=== PATIENT | male | born 1965 | race Hispanic/Latino ===

== ENCOUNTER 2018-02-18 11:53 | Emergency (ER) | payer MEDICARE, BC ==
[~2018-02-18] VITALS: Ht 172.7 cm; Wt 127.0 kg
--- OUTSIDE RECORDS SUMMARY | 2018-02-18 11:56 | XMS REPORT | Clinical Summary ---
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 Disp. Refills Start End Date Status Date ACCU-CHEK TREY PLUS TEST 02/10/20 Active STRP strip test strips 16 buPROPion XL (WELLBUTRIN 5 01/17/20 Active XL) 300 MG 24 hr tablet 16 doxazosin (CARDURA) 8 MG 02/27/20 Active tablet 16 VASCEPA 1 gram capsule TK 1 C PO BID 3 03/07/20 Active 16 lisinopril 02/27/20 Active (PRINIVIL,ZESTRIL) 10 MG 16 tablet pioglitazone (ACTOS) 30 02/09/20 Active MG tablet 16 K-TAB 10 mEq CR tablet 01/08/20 Active 16 CRESTOR 10 mg tablet TK 1 T PO QD 1 02/20/20 Active 16 sertraline (ZOLOFT) 100 01/21/20 Active MG tablet 16 RAPAMUNE 1 mg tablet 03/01/20 Active 16 traZODone (DESYREL) 50 MG 02/06/20 Active tablet 16 atorvastatin (LIPITOR) 40 TK 1 T PO DAILY 2 11/01/20 Active MG tablet 16 NEORAL 25 mg capsule 09/03/20 Active 16 ondansetron ODT Take 1 tablet (4 mg 30 tablet 1 05/27/20 Active (ZOFRAN-ODT) 4 MG total) by mouth every 8 17 disintegrating tablet (eight) hours as needed for nausea or vomiting. albuterol (PROVENTIL) 2.5 Take 3 mL (2.5 mg total) 75 mL 1 06/07/20 06/07/20 Active mg /3 mL (0.083 %) by nebulization every 6 17 18 nebulizer (six) hours as needed for solutionIndications: wheezing. Viral bronchitis albuterol (PROAIR HFA) 90 INHALE 2 PUFFS BY MOUTH 8.5 g 3 06/14/20 Active mcg/actuation EVERY 6 HOURS NEEDED 17 inhalerIndications: Cough FOR SHORTNESS OF BREATH VITAMIN D2 50,000 unit Take 1 capsule (50,000 12 capsule 1 08/27/20 Active capsuleIndications: Units total) by mouth 17 Vitamin D deficiency once a week. ondansetron ODT 0 01/19/20 05/27/20 Discontin (ZOFRAN-ODT) 4 MG 16 17 ued disintegrating tablet VITAMIN D2 50,000 unit Take 1 capsule (50,000 12 capsule 0 04/04/20 05/27/20 Discontin capsule Units total) by mouth 16 17 ued once a week. allopurinol (ZYLOPRIM) 09/25/20 05/27/20 Discontin 100 MG tablet 16 17 ued albuterol (PROAIR Inhale 2 puffs every 6 18 g 1 11/15/20 05/22/20 Discontin HFA,PROVENTIL (six) hours as needed for 16 17 ued HFA,VENTOLIN HFA) 90 shortness of breath. mcg/actuation inhalerIndications: Cough amoxicillin-pot Take 1 tablet by mouth 2 20 tablet 0 05/13/20 clavulanate (AUGMENTIN) (two) times a day for 10 17 17 875-125 mg per days. tabletIndications: Acute non-recurrent maxillary sinusitis, Acute suppurative otitis media of both ears without spontaneous rupture of tympanic membranes, recurrence not specified PROAIR HFA 90 INHALE 2 PUFFS BY MOUTH 8.5 g 0 05/22/20 06/14/20 Discontin mcg/actuation EVERY 6 HOURS NEEDED 17 17 ued inhalerIndications: Cough FOR SHORTNESS OF BREATH VITAMIN D2 50,000 unit Take 1 capsule (50,000 12 capsule 0 05/27/20 05/27/20 Discontin capsuleIndications: Units total) by mouth 17 17 ued Vitamin D deficiency once a week. VITAMIN D2 50,000 unit Take 1 capsule (50,000 12 capsule 1 05/27/20 08/27/20 Discontin capsuleIndications: Units total) by mouth 17 17 ued Vitamin D deficiency once a week. codeine-guaifenesin Take 5 mL by mouth 3 236 mL 0 06/07/20 06/17/20 (GUAIFENESIN AC) 10-100 (three) times a day as 17 17 mg/5 mL needed for cough for up liquidIndications: Viral to 10 days. bronchitis erythromycin 0.5% Administer 1 application 1 g 0 08/27/20 09/03/20 (ILOTYCIN) 5 mg/gram (0.5 into the left eye 2 (two) 17 17 %) ophthalmic times a day for 7 days. ointmentIndications: Acute bacterial conjunctivitis of left eye Hospital, Clinic, or Ordered Dose Route Frequency Start End Date Status Other Facility Date Administered Medication albuterol (PROVENTIL) 2.5 mg nebu Once 06/07/20 Active nebulizer solution 2.5 17 mgIndications: Cough, SOB (shortness of breath), Viral bronchitis Active Problems Problem Noted Date Abscess 01/09/2017 Acute pharyngitis 01/09/2017 Acute upper respiratory infection 01/09/2017 Ankle joint pain 01/09/2017 Nausea 01/09/2017 Multiple-type hyperlipidemia 01/09/2017 Abdominal distension 01/09/2017 Joint pain 01/09/2017 Iron deficiency anemia 01/09/2017 Insomnia 01/09/2017 Hyperlipidemia 01/09/2017 History of kidney transplant 01/09/2017 Headache 01/09/2017 Gouty arthropathy 01/09/2017 Fever 01/09/2017 Elevated blood-pressure reading without diagnosis of hypertension 01/09/2017 Diverticulitis of sigmoid colon 01/09/2017 Diverticulosis of intestine 01/09/2017 Diarrhea 01/09/2017 Benign essential hypertension 01/09/2017 Chest pain 01/09/2017 Conjunctivitis 01/09/2017 Obstructive sleep apnea syndrome in adult 01/09/2017 Cellulitis of orbit 01/09/2017 Pain of lower extremity 01/09/2017 Otitis media 01/09/2017 Psychogenic headache 01/09/2017 Renal disorder 01/09/2017 Right flank pain 01/09/2017 Arthralgia of shoulder 01/09/2017 Stomatitis 01/09/2017 Testicular hypofunction 01/09/2017 Tremor 01/09/2017 Urinary tract infection 01/09/2017 Vitamin D deficiency 01/09/2017 Diabetes mellitus 11/09/2016 Overview: Overview: IDDM PREDNISONE INDUCED Overview: IDDM PREDNISONE INDUCED Gout 11/09/2016 Hypertension 11/09/2016 Congenital cystic kidney disease 11/09/2016 Sleep apnea 11/09/2016 Overview: Overview: uses cpap Overview: uses cpap Diverticulitis of large intestine 03/22/2016 Benign prostatic hyperplasia 02/10/2016 Chronic kidney disease, stage III (moderate) 02/10/2016 Depression 02/10/2016 Left lower quadrant pain 02/10/2016 Encounters Date Type Specialty Care Team Description 12/09/2017 Lab Lab Colleen Dow MD Multiple-type hyperlipidemia; Vitamin D deficiency; IGT (impaired glucose tolerance); Anemia, unspecified type 12/09/2017 Office Visit Internal Medicine Colleen Dow MD Multiple-type hyperlipidemia (Primary Dx); Vitamin D deficiency; Need for influenza vaccination; Anemia, unspecified type; IGT (impaired glucose tolerance); History of diverticulitis 08/27/2017 Office Visit Internal Medicine Colleen Dow MD Diabetes mellitus with insulin therapy (Primary Dx); Benign essential hypertension; Vitamin D deficiency; Chronic kidney disease, stage III (moderate); Acute bacterial conjunctivitis of left eye; Need for influenza vaccination 06/14/2017 Refill Internal Medicine Anh Lee MA Cough 06/07/2017 Office Visit Internal Medicine Colleen Dow MD Cough (Primary Dx); SOB (shortness of breath); Viral bronchitis 06/07/2017 Telephone Family Medicine Kalyn Hawk LVN 05/30/2017 Refill Internal Medicine Colleen Dow MD Acute non -recurrent maxillary sinusitis; Acute suppurative otitis media of both ears without spontaneous rupture of tympanic membranes, recurrence not specified 05/27/2017 Office Visit Internal Medicine Colleen Dow MD Hoarseness (Primary Dx); Multiple-type hyperlipidemia; Vitamin D deficiency; Elevated liver function tests; Gastroesophageal reflux disease with esophagitis 05/22/2017 Refill Family Medicine Lakeshia Dunlap MD Cough 05/13/2017 Lab Lab Colleen Dow MD Multiple-type hyperlipidemia; Other iron deficiency anemia; Vitamin D deficiency; Type 2 diabetes mellitus with chronic kidney disease, without long-term current use of insulin, unspecified CKD stage; Localized edema; Benign non-nodular prostatic hyperplasia without lower urinary tract symptoms; Screening for prostate cancer; Need for hepatitis C screening test 05/13/2017 Office Visit Internal Medicine Colleen Dow MD Acute non-recurrent maxillary sinusitis (Primary Dx); Acute suppurative otitis media of both ears without spontaneous rupture of tympanic membranes, recurrence not specified after 02/17/2017 Immunizations Name Dates Previously Given Next Due INFLUENZA QUAD PF 12/09/2017, 08/27/2017 Influenza, Unspecified 11/25/2016, 02/16/2016 Family History Medical History Relation Name Comments Lupus Daughter Anorexia nervosa Daughter Diabetes Father after transplant Kidney failure Father PCKD Kidney failure Son PCKD Relation Name Status Comments Daughter Daughter Father Son Social History Tobacco Use Types Packs/Day Years Used Date Never Smoker Tobacco Cessation: Counseling Given: No Alcohol Use Drinks/Week oz/Week Comments No 1/year Sex Assigned at Date Recorded Not on file Last Filed Vital Signs Vital Sign Reading Time Taken Blood Pressure 112/73 12/09/2017 10:36 AM [facility] Pulse 85 12/09/2017 10:36 AM [facility] Temperature 36.6 C (97.8 F) 12/09/2017 10:36 AM [facility] Respiratory Rate 18 12/09/2017 10:36 AM [facility] Oxygen Saturation 95% 12/09/2017 10:36 AM [facility] Inhaled Oxygen - - Concentration Weight 126 kg (278 lb) 12/09/2017 10:36 AM [facility] Height 172.7 cm (5' 8") 08/27/2017 10:15 AM CDT Body Mass Index 42.27 12/09/2017 10:36 AM [facility] Plan of Treatment Health Maintenance Due Date Last Done Comments FOOT EXAM 1975 OPHTHALMOLOGY EXAM 1975 COLONOSCOPY 2015 INFLUENZA VACCINE Completed 12/09/2017, 08/27/2017, 11/25/2016, Additional history exists Results * Vitamin D 25 hydroxy level (12/09/2017 11:34 AM) Only the most recent of 2 results within the time period is included. Component Value Ref Range Vitamin D, 25-hydroxy 22.6 (L) 30.0 - 100.0 ng/mL Comment: Vitamin D deficiency has been defined by the [place] [employer] and an Endocrine Society practice guideline as a level of serum 25-OH vitamin D less than 20 ng/mL (1,2). The Endocrine Society went on to further define vitamin D insufficiency as a level between 21 and 29 ng/mL (2). 1. IOM ([place] [employer]). 2010. Dietary reference intakes for calcium and D. [place]: The National Academies Press. 2. Jose Enrique MF, Dimple [place], Araseli JUAREZ, et al. Evaluation, treatment, and prevention of vitamin D deficiency: an Endocrine Society clinical practice guideline. JCEM. 2010; 96(2):1911-30. Specimen Performing Laboratory Blood [facility] Narrative Performed at:[address] [place], [place] [id number] [employer] Hand: Jasiel Garcia MD, Phone:[phone] * Iron level (12/09/2017 11:34 AM) Only the most recent of 2 results within the time period is included. Component Value Ref Range Iron level 75 38 - 169 ug/dL Specimen Performing Laboratory [facility] Narrative Performed at:[address] [place], [place] [id number] [employer] Hand: Jasiel Garcia MD, Phone:[phone] * Hemoglobin A1c (12/09/2017 11:34 AM) Only the most recent of 2 results within the time period is included. Component Value Ref Range Hemoglobin A1C 6.2 (H) 4.8 - 5.6 % Comment: Pre-diabetes: 5.7 - 6.4 Diabetes: >6.4 Glycemic control for adults with diabetes: <7.0 Specimen Performing Laboratory [facility] Narrative Performed at:[address] [place], [place] [id number] [employer] Hand: Jasiel Garcia MD, Phone:[phone] * Ferritin level (12/09/2017 11:34 AM) Only the most recent of 2 results within the time period is included. Component Value Ref Range Ferritin level 416 (H) 30 - 400 ng/mL Specimen Performing Laboratory [facility] Narrative Performed at:[address] [place], [place] [id number] [employer] Hand: Jasiel Garcia MD, Phone:[phone] * Lipid panel (12/09/2017 11:34 AM) Only the most recent of 2 results within the time period is included. Component Value Ref Range Cholesterol 174 100 - 199 mg/dL Triglycerides 246 (H) 0 - 149 mg/dL HDL cholesterol 43 >39 mg/dL VLDL cholesterol nely 49 (H) 5 - 40 mg/dL LDL cholesterol 82 0 - 99 mg/dL calculated Non-HDL cholesterol 131 (H) 0 - 129 mg/dL Specimen Performing Laboratory [facility] Narrative Performed at: - [id number] [employer] Hand: Jasiel Garcia MD, Phone:[phone] * XR Chest 2 Vw (06/07/2017 11:44 AM) Specimen Performing Laboratory [facility] [address] [place] [address] Narrative EXAMINATION:XR CHEST 2 VW CLINICAL HISTORY:R05 Cough, Cough, transplant patient COMPARISON: November 16, 2016 . IMPRESSION: 1.The heart size is at upper limits of normal. 2.No focal areas of consolidation are identified. There is mild peribronchial wall thickening however this is unchanged from November 16, 2016 and may relate to bronchitis or the patient's underlying volume status. 3.A pleural effusion or pneumothorax is not identified. Osseous structures are intact. 4.Overall, there has been no interval change from prior. [id number] Procedure Note Hm Interface, Radiology Results Incoming - 06/07/2017 1:11 PM CDT EXAMINATION: XR CHEST 2 VW CLINICAL HISTORY: R05 Cough, Cough, transplant patient COMPARISON: November 16, 2016 . IMPRESSION: 1. The heart size is at upper limits of normal. 2. No focal areas of consolidation are identified. There is mild peribronchial wall thickening however this is unchanged from November 16, 2016 and may relate to bronchitis or the patient's underlying volume status. 3. A pleural effusion or pneumothorax is not identified. Osseous structures are intact. 4. Overall, there has been no interval change from prior. [id number] * FL Upper GI (06/05/2017 9:45 AM) Specimen Performing Laboratory [facility] [address] [place] [address] Narrative EXAMINATION:FL UPPER GI CLINICAL HISTORY:K21.0 Gastro-esophageal reflux disease with esophagitis, increased GERD COMPARISON:None. TECHNIQUE:UPPER GI SERIES was performed with effervescent granules and barium. FLUOROSCOPIC TIME:2 minutes IMAGES:26 IMPRESSION: 1.Esophagus:Esophagus was distensible. The mucosa and motility were within normal limits. 2.Gastroesophageal junction:There is a small intermittent sliding hiatal hernia (image 9). There was some spontaneous gastroesophageal reflux to the level of the midesophagus. 3.Stomach:Normally distensible and demonstrates normal contours and mucosal pattern. 4.Duodenum:Bulb and sweep are normal. The duodenal-jejunal junction is in the normal expected position. There is a diverticulum from the second stage of the duodenum. Surgical clips over the left upper quadrant. [id number] Procedure Note Interface, Radiology Results Incoming - 06/05/2017 11:29 AM CDT EXAMINATION: FL UPPER GI CLINICAL HISTORY: K21.0 Gastro-esophageal reflux disease with esophagitis, increased GERD COMPARISON: None. TECHNIQUE: UPPER GI SERIES was performed with effervescent granules and barium. FLUOROSCOPIC TIME: 2 minutes IMAGES: 26 IMPRESSION: 1. Esophagus: Esophagus was distensible. The mucosa and motility were within normal limits. 2. Gastroesophageal junction: There is a small intermittent sliding hiatal hernia (image 9). There was some spontaneous gastroesophageal reflux to the level of the midesophagus. 3. Stomach: Normally distensible and demonstrates normal contours and mucosal pattern. 4. Duodenum: Bulb and sweep are normal. The duodenal-jejunal junction is in the normal expected position. There is a diverticulum from the second stage of the duodenum. Surgical clips over the left upper quadrant. [id number] * US Abdomen Complete (06/05/2017 9:25 AM) Specimen Performing Laboratory [address] [address] Narrative EXAM: US ABDOMEN COMPLETE CLINICAL DATA:R79.89 Other specified abnormal findings of blood chemistry, ABNORMAL LIVER FUNCTION TESTS, elevated LE's new onset COMPARISON: NONE. FINDINGS: PANCREAS:The visualized portions of the pancreas are within normal limits. LIVER:The liver demonstrates heterogeneous and slightly hyperechoic echotexture. There is no focal liver lesion identified. Negative for dilation of intra or extrahepatic grade ducts. MPV:Doppler evaluation of the portal vein demonstrates normal hepatopedal flow. measuring 1.3 cm. CBD:6 within normal limits. GALLBLADDER:The gallbladder is without evidence of calculi. The gallbladder wall is not thickened and there is no pericholecystic fluid. Multiple cysts seen within the right kidney with largest measuring 3 cm. No visualized suspicious mass. Status post left nephrectomy. Transplanted kidney located in the right lower quadrant measuring 9.8 x 6.2 x 5.8 cm was cortex measuring 1.44 cm. Mild dilation of right upper pole cavities. SPLEEN:The spleen is homogeneous and not enlarged measuring9.5 cm AORTA:The visualized upper abdominal aorta demonstrates no evidence of ectasia or aneurysm. IVC:The visualized portions of the inferior vena cava are unremarkable. IMPRESSION: 1. The liver demonstrates heterogeneous and slightly hyperechoic echotexture without focal lesion or dilation ofintra or extrahepatic biliary ducts. 2. Negative for cholelithiasis or cholecystitis. 3. Transplanted kidney located in the right lower quadrant. Mild dilation of upper pole cavities likely physiologic. Negative for nephrolithiasis. 4. Cahto right kidney demonstrates multiple cysts with largest measuring 3 cm consistent with known patient history of polycystic kidney disease. 5. Status post left nephrectomy. Unremarkable surgical site. [id number] Procedure Note Hm Interface, Radiology Results Incoming - 06/05/2017 9:56 AM CDT EXAM: US ABDOMEN COMPLETE CLINICAL DATA: R79.89 Other specified abnormal findings of blood chemistry, ABNORMAL LIVER FUNCTION TESTS, elevated LE's new onset COMPARISON: NONE. FINDINGS: PANCREAS: The visualized portions of the pancreas are within normal limits. LIVER: The liver demonstrates heterogeneous and slightly hyperechoic echotexture. There is no focal liver lesion identified. Negative for dilation of intra or extrahepatic grade ducts. MPV: Doppler evaluation of the portal vein demonstrates normal hepatopedal flow. measuring 1.3 cm. CBD: 6 within normal limits. GALLBLADDER: The gallbladder is without evidence of calculi. The gallbladder wall is not thickened and there is no pericholecystic fluid. Multiple cysts seen within the right kidney with largest measuring 3 cm. No visualized suspicious mass. Status post left nephrectomy. Transplanted kidney located in the right lower quadrant measuring 9.8 x 6.2 x 5.8 cm was cortex measuring 1.44 cm. Mild dilation of right upper pole cavities. SPLEEN: The spleen is homogeneous and not enlarged measuring 9.5 cm AORTA: The visualized upper abdominal aorta demonstrates no evidence of ectasia or aneurysm. IVC: The visualized portions of the inferior vena cava are unremarkable. IMPRESSION: 1. The liver demonstrates heterogeneous and slightly hyperechoic echotexture without focal lesion or dilation of intra or extrahepatic biliary ducts. 2. Negative for cholelithiasis or cholecystitis. 3. Transplanted kidney located in the right lower quadrant. Mild dilation of upper pole cavities likely physiologic. Negative for nephrolithiasis. 4. Cahto right kidney demonstrates multiple cysts with largest measuring 3 cm consistent with known patient history of polycystic kidney disease. 5. Status post left nephrectomy. Unremarkable surgical site. [id number] * Hepatitis acute panel (05/13/2017 9:53 AM) Component Value Ref Range Hepatitis A IgM Negative Negative Hepatitis B surface Ag Negative Negative Hepatitis B core IgM Negative Negative Hepatitis C Ab <0.1 0.0 - 0.9 s/co ratio Comment: Negative: < 0.8 Indeterminate: 0.8 - 0.9 Positive: > 0.9 The CDC recommends that a positive HCV antibody result be followed up with a HCV Nucleic Acid Amplification test (998994). Specimen Performing Laboratory [facility] Narrative Performed at: - [id number] [employer] Hand: Jasiel Garcia MD, Phone:[phone] * CBC with platelet and differential (05/13/2017 9:53 AM) Component Value Ref Range WBC 5.4 3.4 - 10.8 x10E3/uL RBC 3.90 (L) 4.14 - 5.80 x10E6/uL HGB 10.8 (L) 12.6 - 17.7 g/dL HCT 33.5 (L) 37.5 - 51.0 % MCV 86 79 - 97 fL MCH 27.7 26.6 - 33.0 pg MCHC 32.2 31.5 - 35.7 g/dL RDW 16.4 (H) 12.3 - 15.4 % Platelet count 168 150 - 379 x10E3/uL Neutrophils 61 % Lymphocytes 26 % Monocytes 6 % Eosinophils 7 % Basophils 0 % Neutrophils, absolute 3.2 1.4 - 7.0 x10E3/uL Lymphocytes, absolute 1.4 0.7 - 3.1 x10E3/uL Monocytes, absolute 0.3 0.1 - 0.9 x10E3/uL Eosinophils, absolute 0.4 0.0 - 0.4 x10E3/uL Basophils, absolute 0.0 0.0 - 0.2 x10E3/uL Immature granulocytes 0 % Immature grans (abs) 0.0 0.0 - 0.1 x10E3/uL Specimen Performing Laboratory [facility] Narrative Performed at:[address] [place], [place] [id number] [employer] Hand: Jasiel Garcia MD, Phone:[phone] * T3, free (05/13/2017 9:53 AM) Component Value Ref Range T3, free 3.3 2.0 - 4.4 pg/mL Specimen Performing Laboratory [facility] Narrative Performed at:[address] [place], [place] [id number] [employer] Hand: Jasiel Garcia MD, Phone:[phone] * Thyroid stimulating hormone (05/13/2017 9:53 AM) Component Value Ref Range TSH 4.420 0.450 - 4.500 uIU/mL Specimen Performing Laboratory [facility] Narrative Performed at:[address] [place], [place] [id number] [employer] Hand: Jasiel Garcia MD, Phone:[phone] * Prostate specific antigen (05/13/2017 9:53 AM) Component Value Ref Range PSA 0.7 0.0 - 4.0 ng/mL Comment: Kieran ECLIA methodology. According to the [place] [employer], Serum PSA should decrease and remain at undetectable levels after radical prostatectomy. The AUA defines biochemical recurrence as an initial PSA value 0.2 ng/mL or greater followed by a subsequent confirmatory PSA value 0.2 ng/mL or greater. Values obtained with different assay methods or kits cannot be used interchangeably. Results cannot be interpreted as absolute evidence of the presence or absence of malignant disease. Specimen Performing Laboratory [facility] Narrative Performed at:[address] [place], [place] [id number] [employer] Hand: Jasiel Garcia MD, Phone:[phone] * Vitamin B12 level (05/13/2017 9:53 AM) Component Value Ref Range Vitamin B12 1,471 (H) 211 - 946 pg/mL Specimen Performing Laboratory [facility] Narrative Performed at:[address] [place], [place] [id number] [employer] Hand: Jasiel Garcia MD, Phone:[phone] * Comprehensive metabolic panel (05/13/2017 9:53 AM) Component Value Ref Range Glucose 104 (H) 65 - 99 mg/dL BUN, whole blood 43 (H) 6 - 24 mg/dL Creatinine 1.79 (H) 0.76 - 1.27 mg/dL EGFR Non-Afr. [place] 43 (L) >59 mL/min/1.73 EGFR 50 (L) >59 mL/min/1.73 BUN/creatinine ratio 24 (H) 9 - 20 Sodium 143 134 - 144 mmol/L Potassium 4.2 3.5 - 5.2 mmol/L Chloride 106 96 - 106 mmol/L CO2 21 18 - 29 mmol/L Calcium 8.9 8.7 - 10.2 mg/dL Protein 6.6 6.0 - 8.5 g/dL Albumin, S 4.0 3.5 - 5.5 g/dL Globulin, total 2.6 1.5 - 4.5 g/dL Albumin/globulin ratio 1.5 1.2 - 2.2 Total bilirubin 0.5 0.0 - 1.2 mg/dL Alkaline phosphatase 138 (H) 39 - 117 IU/L AST 45 (H) 0 - 40 IU/L ALT 46 (H) 0 - 44 IU/L Specimen Performing Laboratory [facility] Narrative Performed at: [facility] [id number] [employer] Hand: Jasiel Garcia MD, Phone:[phone] after 02/17/2017 Insurance Payer Benefit Subscriber ID Type Phone Address Plan / Group MEDICARE MEDICARE xxxxxxxxxx Medicare [place], [place] PART A AND B BCBS BCBS xxxxxxxxx PPO CHOICE PPO/AMMON FERRIS PPO
--- OUTSIDE RECORDS SUMMARY | 2018-02-18 11:56 | XMS REPORT ---
[facility] Address Unknown Phone Unavailable Care Team Providers Care Attending Radiologist Name Role Phone GREG MONTELONGO Unavailable Unavailable Problems This patient has no known problems. Allergies, Adverse Reactions, Alerts This patient has no known allergies or adverse reactions. Medications This patient has no known medications. Results Test Description Test Time Test Comments Text Results Atomic Results Result Comments BLOOD CULTURE 2017-12-01 23:00:00 CULTURE (BEAKER) (test lrma=2205) No growth in 5 days BLOOD [id number] 23:00:00* Test Item Value Reference Range Comments CULTURE (BEAKER) (test cdaq=8483) No growth in 5 days POCT-GLUCOSE [id number] 07:52:00* Test Item Value Reference Range Comments POC-GLUCOSE METER (BEAKER) (test qrqk=9223) 93 mg/dL 70-[address] [facility] [address] [facility] [address] BASIC METABOLIC [id number] 06:18:00* Test Item Value Reference Range Comments SODIUM (BEAKER) (test gdkc=347) 141 meq/L 136-145 POTASSIUM (BEAKER) (test dpzg=275) 4.6 meq/L 3.5-5.1 CHLORIDE (BEAKER) (test nvml=455) 114 meq/L 98-107 CO2 (BEAKER) (test iycs=104) 20 meq/L 22-29 BLOOD UREA NITROGEN (BEAKER) (test zcqz=548) 25 mg/dL 7-21 CREATININE (BEAKER) (test ouho=080) 1.70 mg/dL 0.57-1.25 GLUCOSE RANDOM (BEAKER) (test hpzc=343) 96 mg/dL 70-105 CALCIUM (BEAKER) (test vehg=565) 8.7 mg/dL 8.4-10.2 EGFR (BEAKER) (test wcml=7512) mL/min/1.73 sq m INSUFFICIENT CLINICAL DATA TO CALCULATE ESTIMATED GFR. [id number] 06:14:00* Test Item Value Reference Range Comments PHOSPHORUS (BEAKER) (test yyfz=258) 2.6 mg/dL 2.3-4.7 [id number] 06:14:00* Test Item Value Reference Range Comments MAGNESIUM (BEAKER) (test ruad=320) 1.7 mg/dL 1.6-2.6 CBC W/PLT COUNT & AUTO [id number] 05:44:00* Test Item Value Reference Range Comments WHITE BLOOD CELL COUNT (BEAKER) (test yjva=512) 3.4 K/ L 3.5-10.5 RED BLOOD CELL COUNT (BEAKER) (test qjyl=168) 3.34 M/ L 4.63-6.08 HEMOGLOBIN (BEAKER) (test sgqw=614) 9.2 GM/DL 13.7-17.5 HEMATOCRIT (BEAKER) (test akeu=403) 30.4 % 40.1-51.0 MEAN CORPUSCULAR VOLUME (BEAKER) (test kttf=264) 91.0 fL 79.0-92.2 MEAN CORPUSCULAR HEMOGLOBIN (BEAKER) (test funy=142) 27.5 pg 25.7-32.2 MEAN CORPUSCULAR HEMOGLOBIN CONC (BEAKER) (test weth=034) 30.3 GM/DL 32.3- 36.5 RED CELL DISTRIBUTION WIDTH (BEAKER) (test hjwg=194) 15.3 % 11.6-14.4 PLATELET COUNT (BEAKER) (test swyw=873) 151 K/CU MM 150-450 MEAN PLATELET VOLUME (BEAKER) (test edts=041) 10.5 fL 9.4-12.4 NUCLEATED RED BLOOD CELLS (BEAKER) (test eysr=441) 0 /100 WBC 0-0 NEUTROPHILS RELATIVE PERCENT (BEAKER) (test gvmb=035) 39 % LYMPHOCYTES RELATIVE PERCENT (BEAKER) (test vtik=107) 45 % MONOCYTES RELATIVE PERCENT (BEAKER) (test idqr=828) 8 % EOSINOPHILS RELATIVE PERCENT (BEAKER) (test idfy=502) 7 % BASOPHILS RELATIVE PERCENT (BEAKER) (test drbv=646) 1 % NEUTROPHILS ABSOLUTE COUNT (BEAKER) (test smmx=459) 1.33 K/ L 1.78-5.38 LYMPHOCYTES ABSOLUTE COUNT (BEAKER) (test auhx=514) 1.53 K/ L 1.32-3.57 MONOCYTES ABSOLUTE COUNT (BEAKER) (test axcd=644) 0.27 K/ L 0.30-0.82 EOSINOPHILS ABSOLUTE COUNT (BEAKER) (test cvwo=887) 0.22 K/ L 0.04-0.54 BASOPHILS ABSOLUTE COUNT (BEAKER) (test qspb=065) 0.02 K/ L 0.01-0.08 IMMATURE GRANULOCYTES-RELATIVE PERCENT (BEAKER) (test hcmm=0771) 1 % 0-1 POCT-GLUCOSE [id number] 23:04:00* Test Item Value Reference Range Comments POC-GLUCOSE METER (BEAKER) (test hbqt=0384) 117 mg/dL 70-110 TESTED AT [address] [address] POCT-GLUCOSE [id number] 17:54:00* Test Item Value Reference Range Comments POC-GLUCOSE METER (BEAKER) (test jeqy=2961) 175 mg/dL 70-110 TESTED AT [address] [address] POCT-GLUCOSE [id number] 12:09:00* Test Item Value Reference Range Comments POC-GLUCOSE METER (BEAKER) (test nsmx=4565) 185 mg/dL 70-110 TESTED AT [address] [address] POCT-GLUCOSE [id number] 08:17:00* Test Item Value Reference Range Comments POC-GLUCOSE METER (BEAKER) (test ecgw=6901) 109 mg/dL 70-110 TESTED AT [address] [address] BASIC METABOLIC [id number] 06:54:00* Test Item Value Reference Range Comments SODIUM (BEAKER) (test vwru=385) 140 meq/L 136-145 POTASSIUM (BEAKER) (test abum=631) 4.6 meq/L 3.5-5.1 CHLORIDE (BEAKER) (test hfhb=483) 112 meq/L 98-107 CO2 (BEAKER) (test zvlv=792) 20 meq/L 22-29 BLOOD UREA NITROGEN (BEAKER) (test vvup=943) 27 mg/dL 7-21 CREATININE (BEAKER) (test stwh=710) 1.72 mg/dL 0.57-1.25 GLUCOSE RANDOM (BEAKER) (test abqi=489) 117 mg/dL 70-105 CALCIUM (BEAKER) (test mqtl=207) 8.2 mg/dL 8.4-10.2 EGFR (BEAKER) (test tbqh=3029) mL/min/1.73 sq m INSUFFICIENT CLINICAL DATA TO CALCULATE ESTIMATED GFR. [id number] 06:43:00* Test Item Value Reference Range Comments PHOSPHORUS (BEAKER) (test bpxr=562) 2.4 mg/dL 2.3-4.7 [id number] 06:43:00* Test Item Value Reference Range Comments MAGNESIUM (BEAKER) (test pumi=901) 1.4 mg/dL 1.6-2.6 CBC W/PLT COUNT & AUTO [id number] 06:12:00* Test Item Value Reference Range Comments WHITE BLOOD CELL COUNT (BEAKER) (test kofh=284) 3.0 K/ L 3.5-10.5 RED BLOOD CELL COUNT (BEAKER) (test from=386) 3.21 M/ L 4.63-6.08 HEMOGLOBIN (BEAKER) (test hiis=939) 8.9 GM/DL 13.7-17.5 HEMATOCRIT (BEAKER) (test hkef=511) 29.1 % 40.1-51.0 MEAN CORPUSCULAR VOLUME (BEAKER) (test stkj=684) 90.7 fL 79.0-92.2 MEAN CORPUSCULAR HEMOGLOBIN (BEAKER) (test pcer=862) 27.7 pg 25.7-32.2 MEAN CORPUSCULAR HEMOGLOBIN CONC (BEAKER) (test timq=372) 30.6 GM/DL 32.3- 36.5 RED CELL DISTRIBUTION WIDTH (BEAKER) (test jhiq=617) 15.1 % 11.6-14.4 PLATELET COUNT (BEAKER) (test rlcr=743) 143 K/CU MM 150-450 MEAN PLATELET VOLUME (BEAKER) (test wfhr=149) 10.6 fL 9.4-12.4 NUCLEATED RED BLOOD CELLS (BEAKER) (test dspy=006) 0 /100 WBC 0-0 NEUTROPHILS RELATIVE PERCENT (BEAKER) (test srul=328) 40 % LYMPHOCYTES RELATIVE PERCENT (BEAKER) (test gsed=400) 43 % MONOCYTES RELATIVE PERCENT (BEAKER) (test rrcq=689) 9 % EOSINOPHILS RELATIVE PERCENT (BEAKER) (test gpom=926) 8 % BASOPHILS RELATIVE PERCENT (BEAKER) (test vuha=538) 1 % NEUTROPHILS ABSOLUTE COUNT (BEAKER) (test zoos=138) 1.18 K/ L 1.78-5.38 LYMPHOCYTES ABSOLUTE COUNT (BEAKER) (test lson=410) 1.27 K/ L 1.32-3.57 MONOCYTES ABSOLUTE COUNT (BEAKER) (test tkun=766) 0.26 K/ L 0.30-0.82 EOSINOPHILS ABSOLUTE COUNT (BEAKER) (test wpvx=819) 0.24 K/ L 0.04-0.54 BASOPHILS ABSOLUTE COUNT (BEAKER) (test aicq=310) 0.03 K/ L 0.01-0.08 IMMATURE GRANULOCYTES-RELATIVE PERCENT (BEAKER) (test emma=2344) 0 % 0-1 POCT-GLUCOSE [id number] 21:03:00* Test Item Value Reference Range Comments POC-GLUCOSE METER (BEAKER) (test rvbx=1110) 191 mg/dL 70-110 TESTED AT [address] [address] POCT-GLUCOSE [id number] 17:11:00* Test Item Value Reference Range Comments POC-GLUCOSE METER (BEAKER) (test owfw=9214) 94 mg/dL 70-110 TESTED AT [address] [address] CYCLOSPORINE [id number] 13:10:00* Test Item Value Reference Range Comments CYCLOSPORINE BLOOD (BEAKER) (test jrwy=990) 64 ng/mL <400 POCT-GLUCOSE [id number] 12:06:00* Test Item Value Reference Range Comments POC-GLUCOSE METER (BEAKER) (test lfvl=5180) 93 mg/dL 70-110 TESTED AT [address] [address] SIROLIMUS [id number] 12:01:00* Test Item Value Reference Range Comments SIROLIMUS LEVEL BLOOD (BEAKER) (test ihvn=562) 9.0 ng/mL 5.0-15.0 CBC W/PLT COUNT & AUTO [id number] 07:07:00* Test Item Value Reference Range Comments WHITE BLOOD CELL COUNT (BEAKER) (test qewa=256) 3.7 K/ L 3.5-10.5 RED BLOOD CELL COUNT (BEAKER) (test kzix=588) 3.13 M/ L 4.63-6.08 HEMOGLOBIN (BEAKER) (test afxr=453) 8.5 GM/DL 13.7-17.5 HEMATOCRIT (BEAKER) (test zuhd=204) 28.2 % 40.1-51.0 MEAN CORPUSCULAR VOLUME (BEAKER) (test wvgu=877) 90.1 fL 79.0-92.2 MEAN CORPUSCULAR HEMOGLOBIN (BEAKER) (test epcb=279) 27.2 pg 25.7-32.2 MEAN CORPUSCULAR HEMOGLOBIN CONC (BEAKER) (test pzjp=372) 30.1 GM/DL 32.3- 36.5 RED CELL DISTRIBUTION WIDTH (BEAKER) (test tyrg=102) 15.1 % 11.6-14.4 PLATELET COUNT (BEAKER) (test gfof=742) 146 K/CU MM 150-450 MEAN PLATELET VOLUME (BEAKER) (test kwib=276) 10.9 fL 9.4-12.4 NUCLEATED RED BLOOD CELLS (BEAKER) (test iwym=267) 0 /100 WBC 0-0 NEUTROPHILS RELATIVE PERCENT (BEAKER) (test wucu=934) 44 % LYMPHOCYTES RELATIVE PERCENT (BEAKER) (test apoc=832) 41 % MONOCYTES RELATIVE PERCENT (BEAKER) (test iwik=933) 9 % EOSINOPHILS RELATIVE PERCENT (BEAKER) (test lwvp=453) 6 % BASOPHILS RELATIVE PERCENT (BEAKER) (test xbom=146) 1 % NEUTROPHILS ABSOLUTE COUNT (BEAKER) (test jfkq=549) 1.60 K/ L 1.78-5.38 LYMPHOCYTES ABSOLUTE COUNT (BEAKER) (test aqcl=548) 1.49 K/ L 1.32-3.57 MONOCYTES ABSOLUTE COUNT (BEAKER) (test rdaq=203) 0.34 K/ L 0.30-0.82 EOSINOPHILS ABSOLUTE COUNT (BEAKER) (test phzb=616) 0.21 K/ L 0.04-0.54 BASOPHILS ABSOLUTE COUNT (BEAKER) (test iulb=341) 0.02 K/ L 0.01-0.08 IMMATURE GRANULOCYTES-RELATIVE PERCENT (BEAKER) (test wwou=8696) 0 % 0-1 BASIC METABOLIC [id number] 06:22:00* Test Item Value Reference Range Comments SODIUM (BEAKER) (test tpol=388) 139 meq/L 136-145 POTASSIUM (BEAKER) (test itoo=025) 4.3 meq/L 3.5-5.1 CHLORIDE (BEAKER) (test goeb=365) 111 meq/L 98-107 CO2 (BEAKER) (test krlg=364) 22 meq/L 22-29 BLOOD UREA NITROGEN (BEAKER) (test jprv=880) 30 mg/dL 7-21 CREATININE (BEAKER) (test kwga=360) 1.64 mg/dL 0.57-1.25 GLUCOSE RANDOM (BEAKER) (test norg=606) 98 mg/dL 70-105 CALCIUM (BEAKER) (test rpds=639) 8.5 mg/dL 8.4-10.2 EGFR (BEAKER) (test buvj=2278) mL/min/1.73 sq m INSUFFICIENT CLINICAL DATA TO CALCULATE ESTIMATED GFR. [id number] 06:13:00* Test Item Value Reference Range Comments PHOSPHORUS (BEAKER) (test ldqc=297) 2.3 mg/dL 2.3-4.7 [id number] 06:13:00* Test Item Value Reference Range Comments MAGNESIUM (BEAKER) (test cmui=705) 1.4 mg/dL 1.6-2.6 POCT-GLUCOSE [id number] 05:19:00* Test Item Value Reference Range Comments POC-GLUCOSE METER (BEAKER) (test bxlz=5665) 101 mg/dL 70-110 TESTED AT [address] [address] POCT-GLUCOSE [id number] 04:57:00* Test Item Value Reference Range Comments POC-GLUCOSE METER (BEAKER) (test yxqn=6919) 108 mg/dL 70-110 TESTED AT [address] [address] POCT-GLUCOSE [id number] 21:14:00* Test Item Value Reference Range Comments POC-GLUCOSE METER (BEAKER) (test opap=9374) 99 mg/dL 70-110 TESTED AT [address] [address] BASIC METABOLIC [id number] 16:24:00* Test Item Value Reference Range Comments SODIUM (BEAKER) (test cdco=125) 140 meq/L 135-148 POTASSIUM (BEAKER) (test zqtd=950) 4.3 meq/L 3.6-5.5 CHLORIDE (BEAKER) (test vopv=119) 105 meq/L 98-106 CO2 (BEAKER) (test koib=087) 22 meq/L 24-32 BLOOD UREA NITROGEN (BEAKER) (test xgva=063) 35 mg/dL 10-26 CREATININE (BEAKER) (test qzce=063) 1.77 mg/dL 0.50-1.20 GLUCOSE RANDOM (BEAKER) (test myhj=457) 102 mg/dL 70-110 CALCIUM (BEAKER) (test xsep=041) 9.0 mg/dL 8.5-10.5 EGFR (BEAKER) (test cayx=1529) mL/min/1.73 sq m INSUFFICIENT CLINICAL DATA TO CALCULATE ESTIMATED GFR. HEPATIC FUNCTION [id number] 16:15:00* Test Item Value Reference Range Comments TOTAL PROTEIN (BEAKER) (test xkus=994) 6.8 gm/dL 6.0-8.5 ALBUMIN (BEAKER) (test hlsa=7584) 3.5 g/dL 3.5-5.0 BILIRUBIN TOTAL (BEAKER) (test ncnk=466) 0.9 mg/dL 0.1-1.2 BILIRUBIN DIRECT (BEAKER) (test vzse=903) 0.6 mg/dL 0.0-0.4 ALKALINE PHOSPHATASE (BEAKER) (test tcjz=713) 112 U/L 30-115 AST (SGOT) (BEAKER) (test jjcm=484) 31 U/L 5-40 ALT (SGPT) (BEAKER) (test yzdl=779) 38 U/L 5-50 CBC W/PLT COUNT & AUTO [id number] 16:10:00* Test Item Value Reference Range Comments WHITE BLOOD CELL COUNT (BEAKER) (test vgrd=003) 4.5 10e3/ L 4.0-10.0 RED BLOOD CELL COUNT (BEAKER) (test twaz=976) 3.47 10e6/ L 4.20-5.80 HEMOGLOBIN (BEAKER) (test iaoa=637) 9.8 g/dL 13.0-16.8 HEMATOCRIT (BEAKER) (test gunc=967) 29.6 % 40.0-50.0 MEAN CORPUSCULAR VOLUME (BEAKER) (test flcp=441) 85.4 fL 82.0-98.0 MEAN CORPUSCULAR HEMOGLOBIN (BEAKER) (test rlqz=151) 28.3 pg 27.0-33.0 MEAN CORPUSCULAR HEMOGLOBIN CONC (BEAKER) (test fvaa=096) 33.1 g/dL 32.0- 36.0 RED CELL DISTRIBUTION WIDTH (BEAKER) (test swit=372) 14.3 % 10.3-14.2 PLATELET COUNT (BEAKER) (test esqd=418) 155 10e3/ L 150-430 MEAN PLATELET VOLUME (BEAKER) (test txen=911) 7.8 fL 6.5-10.5 NEUTROPHILS RELATIVE PERCENT (BEAKER) (test xbdl=533) 54 % LYMPHOCYTES RELATIVE PERCENT (BEAKER) (test aake=406) 34 % MONOCYTES RELATIVE PERCENT (BEAKER) (test aiiq=873) 7 % EOSINOPHILS RELATIVE PERCENT (BEAKER) (test nmoi=393) 5 % BASOPHILS RELATIVE PERCENT (BEAKER) (test cqcg=776) 0 % NEUTROPHILS ABSOLUTE COUNT (BEAKER) (test wqro=010) 2.42 10e3/ L 1.80-8.00 LYMPHOCYTES ABSOLUTE COUNT (BEAKER) (test lqvs=469) 1.55 10e3/ L 1.48-4.50 MONOCYTES ABSOLUTE COUNT (BEAKER) (test rxvr=298) 0.31 10e3/ L 0.00-1.30 EOSINOPHILS ABSOLUTE COUNT (BEAKER) (test zlet=441) 0.21 10e3/ L 0.00-0.50 BASOPHILS ABSOLUTE COUNT (BEAKER) (test dicz=240) 0.01 10e3/ L 0.00-0.20 CT, [id number] 16:06:00FINAL REPORT ABDOMINAL AND PELVIS CT DATED 11/26/2017 COMPARISON: November 22, 2016 CLINICAL INFORMATION: Abd pain, fever, abscess suspectedischiorectal or perirectal deep abscess suspected TECHNIQUE: Axial images of the abdomen and pelvis were obtained from diaphragm to the pubic symphysis without GI or intravenous contrast. This exam was performed according to our departmental dose- optimization program, which includes automated exposure control, adjustment of the mA and/or kV according to patient size and/or use of interactive reconstruction technique. COMMENT: Multifocal groundglass pulmonary parenchyma disease is seen in the visualized lower lobes. Liver and spleen are normal in size without focal abnormality. Gallbladder is distended. No gallstone or biliary dilatation is noted. Pancreas and adrenals are unremarkable. Left kidney is surgically absent. Right kidney is atrophic with a multiple simple and hemorrhagic cysts. A few stones are seen in the right kidney. A transplanted kidney is seen in the right lower quadrant abdomen. The small and large bowel are suboptimally evaluated secondary to lack of GI and intravenous contrast. Diverticular disease is seen in the large bowel. There is wall thickening in the distal descending and proximal sigmoid colon with inflammatory changes in the adjacent mesocolon suggestive of a diverticulitis. No adenopathy or ascites is seen in the abdomen or pelvis. IMPRESSION: 1. Diverticulosis with distal descending and proximal sigmoid diverticulitis.2. Status post left nephrectomy.3. Atrophic right kidney with multiple right simple and hemorrhagic cysts. Signed: [facility] Verified Date/Time: 11/26/2017 16:06:39 Reading Location: [facility] C013Y CT Body Reading Room
[2018-02-18] MEDS ORDERED: ACETAMINOPHEN 325 MG TAB PO ONE (12:45)
[2018-02-18 12:54] VITALS: BP 128/75
[2018-02-18] MEDS ORDERED: RAPAMUNE0.5 MG (13:05)
[2018-02-18] MEDS ORDERED: ZOLOFT50 MG PO (13:05)
[2018-02-18] MEDS ORDERED: HUMULIN N100 UNITS/ ×2 (13:06→13:07)
[2018-02-18] MEDS ORDERED: TRAZODONE HCL50 MG PO (13:08)
== END 2018-02-18 12:56 | disposition home or self-care (01) ==
LOC: FSED 11:53
DX: M54.5 Low back pain (principal); Z94.0 Kidney transplant status; M10.9 Gout, unspecified; G47.33 Obstructive sleep apnea (adult) (pediatric)
CPT/HCPCS: 99282

== ENCOUNTER 2019-09-06 11:19 | Emergency (ER) | payer MEDICARE, BC ==
[~2019-09-06] VITALS: Ht 172.7 cm; Wt 127.0 kg
[~2019-09-06 11:19] MED LIST: HUMULIN N100 UNITS/; RAPAMUNE0.5 MG; TRAZODONE HCL50 MG PO; ZOLOFT50 MG PO
[2019-09-06] MEDS ORDERED: MORPHINE SULFATE 2 MG/ML SYR 1ML IV STA (11:41)
[2019-09-06] MEDS ORDERED: ONDANSETRON HCL 4 MG ORAL DISINTEGRATING TAB PO STA (11:41)
--- NOTE | 2019-09-06 12:21 | Diagnostic Imaging Report ---
EXAM: CT of the abdomen and pelvis WITHOUT contrast HISTORY: Left-sided pain on the left flank pain COMPARISON: None available. TECHNIQUE: The abdomen and pelvis were scanned utilizing a multidetector helical scanner. Coronal and sagittal reformats are available. PROTOCOL: Renal colic IV CONTRAST: None, which limits sensitivity and specificity of evaluation of the soft tissues and vascular structures. ORAL CONTRAST: None, which limits sensitivity and specificity of evaluation of the bowel. RADIATION DOSE: Total DLP: 814.26 mGy*cm Estimated effective dose: (DLP x 0.015 x size factor) Dose modulation, iterative reconstruction, and/or weight based adjustment of the mA/kV was utilized to reduce the radiation dose to as low as reasonably achievable. COMPLICATIONS: None FINDINGS: LOWER THORAX: Bilateral multifocal predominantly peripheral opacities. Trace nonspecific pericardial fluid. HEPATOBILIARY: No mass. No biliary dilation. No calcified gallstone. SPLEEN: No splenomegaly. Punctate calcified granulomas. PANCREAS: No focal masses or ductal dilatation. ADRENALS: * No right adrenal nodule. * The left adrenal gland is not visualized, correlate for history of surgical removal. KIDNEYS/URETERS: Right: * The right kidney is atrophic with innumerable indeterminate mixed density lesions and calcifications. Left: * Status post left nephrectomy. Transplanted right pelvic kidney: * No hydronephrosis or stone. PELVIC ORGANS/BLADDER: There are no bladder is partially decompressed, which limits evaluation. PERITONEUM / RETROPERITONEUM: No free air or fluid. GI TRACT: On limited evaluation of the gastrointestinal tract, the stomach is decompressed, which limits evaluation. Scattered descending and sigmoid colon diverticuli, without evidence of acute diverticulitis. The appendix appears normal. LYMPH NODES: No pathologically enlarged lymph nodes. VESSELS: Appear unremarkable. BONES and JOINTS: No aggressive osseous lesion or acute fracture. SOFT TISSUES: Diastases of the ventral midline lower abdominal wall with moderate nonspecific regional soft tissue fat stranding and trace fluid, but no specific evidence of a discrete loculated drainable fluid collection (series 3 image 162 and sagittal image 83. The amount of fat stranding partially obscures evaluation of the underlying soft tissues. IMPRESSION: 1. Lower ventral abdominal wall diastases with regional soft tissue edema, but no discrete drainable abscess or associated bowel obstruction. A superimposed ventral midline hernia is possible. 2. No hydronephrosis or transplant kidney stone. Status post left nephrectomy with innumerable right renal indeterminate lesions, cysts, and calcifications. Signed by: Dr. Paco Peacock D.O., M.M.M. on 09/06/2019 12:17 PM
[2019-09-06] MEDS ORDERED: ONDANSETRON HCL 4 MG ORAL DISINTEGRATING TAB ONE (13:16)
[2019-09-06] MEDS ORDERED: MORPHINE SULFATE INJ 4 MG/ML INJ 1ML ONE (13:16)
[2019-09-06] MEDS ORDERED: SODIUM CHLORIDE 0.9% 1000ML 1,000 ML IV SCH (13:30)
--- NOTE | 2019-09-06 13:52 | NUR ---
[facility] CALLED FOR TRANSPORT 30MIN ETA
[2019-09-06] MEDS ORDERED: SODIUM CHLORIDE 0.9% 1000ML 1,000 ML ONE (14:10)
[2019-09-06 14:24] VITALS: BP 129/61
== END 2019-09-06 14:30 | disposition other institution (70) ==
LOC: FSED 11:19
DX: R10.12 Left upper quadrant pain (principal); L02.211 Cutaneous abscess of abdominal wall; K43.9 Ventral hernia without obstruction or gangrene
CPT/HCPCS: 74176; 80048; 80076; 81003; 85025; 87040; 99284; J2270 ×2; J7030; Q0162

== ENCOUNTER 2020-04-04 13:49 | Emergency (ER) | payer MEDICARE, BC ==
[~2020-04-04] VITALS: Ht 172.7 cm; Wt 127.0 kg
[2020-04-04] MEDS ORDERED: HYDROCODONE/APAP 5MG-325MG TAB PO ONE (14:15)
[2020-04-04] MEDS ORDERED: ONDANSETRON HCL 4 MG ORAL DISINTEGRATING TAB PO ONE (14:15)
--- NOTE | 2020-04-04 14:44 | Diagnostic Imaging Report ---
EXAMINATION: ANKLE 2 VIEW RT - HOPD INDICATION: Ankle pain COMPARISON: None FINDINGS: No acute fracture or dislocation. Mild diffuse osteopenia. Soft tissues appear unremarkable. No substantial ankle joint effusion. Mild scattered degenerative changes. IMPRESSION: No acute osseous injury. Signed by: Elizabeth Moreno MD on 04/04/2020 2:41 PM
== END 2020-04-04 14:35 | disposition home or self-care (01) ==
LOC: FSED 13:49
DX: M25.571 Pain in right ankle and joints of right foot (principal); M10.071 Idiopathic gout, right ankle and foot; I10 Essential (primary) hypertension; E11.9 Type 2 diabetes mellitus without complications; Z94.0 Kidney transplant status
CPT/HCPCS: 73600; 99283; Q0162